=== PATIENT | female | born 1990 | race Two or more races ===

== ENCOUNTER 2018-04-28 16:28 | Inpatient (IN) | payer OTHER ==
[~2018-04-28] VITALS: Ht 162.6 cm; Wt 80.3 kg
[2018-04-28] MEDS ORDERED: PRENATAL FORMU1 EAC1 PO (21:33)
== END 2018-04-30 16:07 | disposition home or self-care (01) | DRG 831 ==
LOC: LDR 16:28
PROC: 4A1HXCZ Monitoring of Products of Conception, Cardiac Rate, External Approach (ICD-10-PCS; 2018-04-28)
PROC: BY4FZZZ Ultrasonography of Third Trimester, Single Fetus (ICD-10-PCS; principal; 2018-04-29)
DX: O47.03 False labor before 37 completed weeks of gestation, third trimester (principal); O14.13 Severe pre-eclampsia, third trimester; R21 Rash and other nonspecific skin eruption; Z34.03 Encounter for supervision of normal first pregnancy, third trimester

== ENCOUNTER 2018-05-01 06:57 | Outpatient (CLI) | payer OTHER ==
[~2018-05-01 06:57] MED LIST: PRENATAL FORMU1 EAC1 PO
== END 2018-05-02 14:07 | disposition home or self-care (01) ==
LOC: OBS/DEL 06:57
DX: O46.8X3 Other antepartum hemorrhage, third trimester (principal); O47.03 False labor before 37 completed weeks of gestation, third trimester